=== PATIENT | male | born 1945 | race Caucasian/White ===

== ENCOUNTER 2021-04-14 16:53 | Inpatient (IN) | payer MEDICARE ==
[~2021-04-14] VITALS: Ht 188 cm; Wt 68.0 kg
[2021-04-14] MEDS ORDERED: TRAM50TA2 PO (17:33)
[2021-04-14] MEDS ORDERED: ACET-2154 PO (17:33)
[2021-04-14] MEDS ORDERED: CLON0.5T4 PO ×2 (17:33→17:34)
[2021-04-14] MEDS ORDERED: CARB-35 PO (17:33)
[2021-04-14] MEDS ORDERED: AZEL137S7 BNOSTRILS (17:33)
[2021-04-14] MEDS ORDERED: POLY17PO4 PO (17:33)
[2021-04-14] MEDS ORDERED: UMEC1BLS IH (17:33)
[2021-04-14] MEDS ORDERED: MONT10TA33 PO (17:33)
[2021-04-14] MEDS ORDERED: BUSP10TA3 PO (17:33)
[2021-04-14] MEDS ORDERED: CHLO473M5 PO (17:33)
[2021-04-14] MEDS ORDERED: ATOR40TA PO (17:33)
[2021-04-14] MEDS ORDERED: PANT40TA49 PO (17:33)
[2021-04-14] MEDS ORDERED: AMLO-212 PO (17:33)
[2021-04-14] MEDS ORDERED: FLUV50TA3 PO (17:33)
[2021-04-14] MEDS ORDERED: MULT-1169 PO (17:33)
[2021-04-14] MEDS ORDERED: BUPR-319 PO (17:33)
[2021-04-14] MEDS ORDERED: NA P133E RC (17:33)
[2021-04-14] MEDS ORDERED: LOSA100T31 PO (17:33)
[2021-04-14] MEDS ORDERED: TAMS-3 PO (17:33)
[2021-04-14] MEDS ORDERED: LEVO137T2 PO (17:33)
[2021-04-14] MEDS ORDERED: TRAZ-182 PO (17:33)
[2021-04-14] MEDS ORDERED: DOCU100C36 PO (17:34)
[2021-04-14 18:04] LABS: HEMATOCRIT 32.4 % (36.7-47.1); MEAN CORPUSCULAR HEMOGLOBIN 29.9 uug (23.8-33.4); MEAN CORPUSCULAR VOLUME 87.8 fL (73.0-96.2); PLATELET COUNT (AUTO) 300 K/uL (152-348)
[2021-04-14] MEDS ORDERED: FLUT16SP BNOSTRILS (18:07)
[2021-04-14] MEDS ORDERED: APIX5TAB4 PO (18:07)
[2021-04-14] MEDS ORDERED: FINA5TAB3 PO (18:07)
[2021-04-14] MEDS ORDERED: CALC625T65 PO (18:07)
[2021-04-14] MEDS ORDERED: FLUV25TA9 PO (18:08)
[2021-04-14 18:10] LABS: CARBON DIOXIDE 30 mmol/L (21-32); CHLORIDE 92 mmol/L (98-107); CREATININE 1.4 mg/dL (0.6-1.3); GLUCOSE 105 mg/dL (74-106); POTASSIUM 4.2 mmol/L (3.5-5.1); UREA NITROGEN, BLOOD 25 mg/dL (7-18)
[2021-04-14] MEDS ORDERED: MAGN400O6 PO (18:15)
[2021-04-14] MEDS ORDERED: BISA10SU61 RC (18:15)
[2021-04-14] MEDS ORDERED: VOLTAREN GEL TP (18:15)
[2021-04-14 18:16] LABS: ETHANOL < 3 MG/DL (0-0)
[2021-04-14 18:18] LABS: ALANINE AMINOTRANSFERASE 29 U/L (16-63); ALKALINE PHOSPHATASE 92 U/L (50-136); ASPARTATE AMINOTRANSFERASE 16 U/L (15-37); BILIRUBIN,DIRECT 0.2 mg/dL (0.0-0.2); BILIRUBIN,TOTAL 0.6 mg/dL (0.2-1.0); TOTAL PROTEIN, SERUM 7.4 g/dL (6.4-8.2)
[2021-04-14 18:21] LABS: ACETAMINOPHEN < 2.0 ug/mL (10-30)
[2021-04-14 18:23] LABS: THYROID STIMULATING HORMONE 0.291 mIU/mL (0.358-3.740)
[2021-04-14 18:32] LABS: *BILIRUBIN,URIN NEGATIVE (NEGATIVE); *BLOOD, URINE 2+ (NEGATIVE); *COLOR,URINE YELLOW (YELLOW); *KETONES,URINE NEGATIVE (NEGATIVE); LEUKOCYTE ESTERASE ,URINE NEGATIVE (NEGATIVE); NITRITE, URINE NEGATIVE (NEGATIVE); UGLUCOSE NEGATIVE (NEGATIVE)
[2021-04-14 18:35] LABS: *CLARITY,URINE SLIGHTLY HAZY (CLEAR); RBC,URINE 20-50 /HPF (0-3)
[2021-04-14 18:36] LABS: BACTERIA,URINE FEW /HPF (NONE SEEN); SQUAMOUS EPITHELIAL CELL,UR FEW /HPF (NONE SEEN)
[2021-04-14 18:40] LABS: *AMPHETAMINE, URINE NEGATIVE (NEGATIVE); *CANNABINOID, URINE NEGATIVE (NEGATIVE); *COCCAINE, URINE NEGATIVE (NEGATIVE); *OPIATE, URINE NEGATIVE (NEGATIVE); *PHENCYCLIDINE SCREEN,URINE NEGATIVE (NEGATIVE)
[2021-04-14] MEDS ORDERED: BISACODYL 10 MG SUPP.RECT RC PRN (21:00)
[2021-04-14] MEDS ORDERED: TRAMADOL HCL 50 MG TABLET PO PRN (21:00)
[2021-04-14] MEDS ORDERED: FLEET ENEMA 133 ML BOTTLE RC PRN (21:00)
[2021-04-14] MEDS ORDERED: LEVOTHYROXINE SODIUM 100 MCG TABLET PO ONE (21:00)
[2021-04-14] MEDS: TAMSULOSIN HCL 0.4 MG CAP.SR.24H PO SCH (22:14)
[2021-04-14] MEDS: TRAZODONE 50 MG TABLET PO SCH (22:14)
[2021-04-14] MEDS: ATORVASTATIN 40 MG TABLET PO SCH (22:14)
[2021-04-14] MEDS: AMLODIPINE 5 MG TABLET PO SCH (22:15)
[2021-04-14] MEDS: CLONAZEPAM 0.5 MG TABLET PO SCH (22:15)
[2021-04-14] MEDS ORDERED: FLUVOXAMINE MALEATE 50 MG TABLET ONE (23:12)
[2021-04-14] MEDS ORDERED: FLUVOXAMINE MALEATE 25 MG TABLET ONE (23:13)
[2021-04-14] MEDS: FLUVOXAMINE MALEATE 50 MG TABLET PO SCH (23:13)
[2021-04-15] VITALS: BP 147/66
[2021-04-15 04:00] VITALS: BP 133/70
[2021-04-15] MEDS: PANTOPRAZOLE SODIUM 40 MG TABLET.DR PO SCH (06:34)
[2021-04-15] MEDS: DOCUSATE SODIUM 100 MG CAPSULE PO SCH ×2 (08:08→16:19)
[2021-04-15] MEDS: busPIRone 10 MG TABLET PO SCH ×2 (08:08→16:18)
[2021-04-15] MEDS: MULTIVITAMINS,THERAPEUTIC TABLET PO SCH (08:08)
[2021-04-15] MEDS: CLONAZEPAM 0.5 MG TABLET PO SCH ×4 (08:09→20:49)
[2021-04-15] MEDS: MONTELUKAST SODIUM 10 MG TABLET PO SCH (08:09)
[2021-04-15] MEDS: FINASTERIDE 5 MG TABLET PO SCH (08:09)
[2021-04-15] MEDS: CARBIDOPA/LEVODOPA 25-100MG TABLET PO SCH ×3 (08:09→16:19)
[2021-04-15] MEDS: MIRALAX 17 GM POWD.PACK PO SCH (08:09)
[2021-04-15] MEDS: APIXABAN 5 MG TABLET PO SCH ×2 (08:10→20:54)
[2021-04-15] MEDS ORDERED: CARBIDOPA/LEVODOPA 25-100MG TAB.RAPDIS PO SCH (09:00)
[2021-04-15] MEDS ORDERED: REMEDY ESSENTIAL ZINC PASTE 113 GM TOP PRN (11:00)
[2021-04-15 11:36] VITALS: BP 114/59
[2021-04-15 12:42] LABS: *BILIRUBIN,URIN NEGATIVE (NEGATIVE); *BLOOD, URINE 2+ (NEGATIVE); *CLARITY,URINE CLEAR (CLEAR); *COLOR,URINE YELLOW (YELLOW); *KETONES,URINE 1+ (NEGATIVE); LEUKOCYTE ESTERASE ,URINE NEGATIVE (NEGATIVE); NITRITE, URINE NEGATIVE (NEGATIVE); PH,URINE 6.5 (5.0-8.0); UGLUCOSE NEGATIVE (NEGATIVE)
[2021-04-15 12:55] LABS: BACTERIA,URINE FEW /HPF (NONE SEEN); WBC,URINE 0-3 /HPF (0-3)
[2021-04-15 12:56] LABS: SQUAMOUS EPITHELIAL CELL,UR FEW /HPF (NONE SEEN)
[2021-04-15 12:57] LABS: RBC,URINE 20-50 /HPF (0-3)
[2021-04-15 13:03] LABS: *CREATININE,URINE 119.9 mg/dL (30-125); *URINE TOTAL PROTEIN RANDOM 40.7 mg/dL (<150/24HR)
[2021-04-15 15:59] VITALS: BP 127/50
[2021-04-15] MEDS: IV NS 1000 ML 1,000 ML IV PRN (19:17)
[2021-04-15 20:00] VITALS: BP 124/77
[2021-04-15] MEDS: ATORVASTATIN 40 MG TABLET PO SCH (20:49)
[2021-04-15] MEDS: TRAZODONE 50 MG TABLET PO SCH (20:49)
[2021-04-15] MEDS: TAMSULOSIN HCL 0.4 MG CAP.SR.24H PO SCH (20:49)
[2021-04-15] MEDS: REMEDY ESSENTIAL ZINC PASTE 113 GM TOP SCH (20:50)
[2021-04-15] MEDS: AMLODIPINE 5 MG TABLET PO SCH (20:53)
[2021-04-15] MEDS: FLUVOXAMINE MALEATE 50 MG TABLET PO SCH (20:55)
[2021-04-16] VITALS: BP 120/64
[2021-04-16 04:00] VITALS: BP 115/64
[2021-04-16] MEDS: PANTOPRAZOLE SODIUM 40 MG TABLET.DR PO SCH (06:05)
[2021-04-16 06:15] LABS: HEMATOCRIT 31.5 % (36.7-47.1); MEAN CORPUSCULAR HEMOGLOBIN 29.6 uug (23.8-33.4); MEAN CORPUSCULAR VOLUME 87.7 fL (73.0-96.2); PLATELET COUNT (AUTO) 341 K/uL (152-348)
[2021-04-16 06:47] LABS: IRON, SERUM 14 ug/dL (50-175)
[2021-04-16 07:01] LABS: ALANINE AMINOTRANSFERASE 20 U/L (16-63); ALKALINE PHOSPHATASE 79 U/L (50-136); ASPARTATE AMINOTRANSFERASE 19 U/L (15-37); BILIRUBIN,TOTAL 0.4 mg/dL (0.2-1.0); CARBON DIOXIDE 29 mmol/L (21-32); CHLORIDE 96 mmol/L (98-107); CREATININE 1.5 mg/dL (0.6-1.3); FERRITIN 544 ng/mL (26-388); GLUCOSE 87 mg/dL (74-106); MAGNESIUM 2.3 mg/dL (1.8-2.4); POTASSIUM 4.2 mmol/L (3.5-5.1); TOTAL PROTEIN, SERUM 6.3 g/dL (6.4-8.2); UREA NITROGEN, BLOOD 21 mg/dL (7-18); URIC ACID 3.6 mg/dL (3.5-7.2)
[2021-04-16 08:10] LABS: CREATINE KINASE, TOTAL 43 U/L (39-308)
[2021-04-16] MEDS: FINASTERIDE 5 MG TABLET PO SCH (08:39)
[2021-04-16] MEDS: DOCUSATE SODIUM 100 MG CAPSULE PO SCH ×2 (08:39→16:10)
[2021-04-16] MEDS: MONTELUKAST SODIUM 10 MG TABLET PO SCH (08:39)
[2021-04-16] MEDS: busPIRone 10 MG TABLET PO SCH ×2 (08:39→16:10)
[2021-04-16] MEDS: MULTIVITAMINS,THERAPEUTIC TABLET PO SCH (08:39)
[2021-04-16] MEDS: CARBIDOPA/LEVODOPA 25-100MG TABLET PO SCH ×3 (08:39→16:11)
[2021-04-16] MEDS: MIRALAX 17 GM POWD.PACK PO SCH (08:39)
[2021-04-16] MEDS: CLONAZEPAM 0.5 MG TABLET PO SCH ×4 (08:40→20:20)
[2021-04-16] MEDS: REMEDY ESSENTIAL ZINC PASTE 113 GM TOP SCH ×2 (08:40→20:22)
[2021-04-16 10:07] VITALS: BP_SYST 105; BP_SYST 114; BP_SYST 87; BP_DIAS 48; BP_DIAS 52; BP_DIAS 54
[2021-04-16] MEDS: LEVOTHYROXINE SODIUM 25 MCG TABLET PO SCH (10:31)
[2021-04-16 11:55] VITALS: BP 103/48
[2021-04-16 15:46] VITALS: BP 117/58
[2021-04-16] MEDS: ENSURE ENLIVE (VAN) 240 ML LIQUID PO SCH (17:43)
[2021-04-16] MEDS: IV NS 1000 ML 1,000 ML IV PRN (18:07)
[2021-04-16] MEDS: ATORVASTATIN 40 MG TABLET PO SCH (20:20)
[2021-04-16] MEDS: TAMSULOSIN HCL 0.4 MG CAP.SR.24H PO SCH (20:20)
[2021-04-16] MEDS: FLUVOXAMINE MALEATE 50 MG TABLET PO SCH (20:20)
[2021-04-16] MEDS: TRAZODONE 50 MG TABLET PO SCH (20:20)
[2021-04-16] MEDS: AMLODIPINE 5 MG TABLET PO SCH (20:21)
[2021-04-17] MEDS: PANTOPRAZOLE SODIUM 40 MG TABLET.DR PO SCH (06:09)
[2021-04-17] MEDS: LEVOTHYROXINE SODIUM 25 MCG TABLET PO SCH (06:09)
[2021-04-17 06:31] LABS: HEMATOCRIT 31.2 % (36.7-47.1); MEAN CORPUSCULAR HEMOGLOBIN 30.2 uug (23.8-33.4); PLATELET COUNT (AUTO) 343 K/uL (152-348)
[2021-04-17 06:52] LABS: CARBON DIOXIDE 29 mmol/L (21-32); CHLORIDE 98 mmol/L (98-107); CREATININE 1.4 mg/dL (0.6-1.3); GLUCOSE 93 mg/dL (74-106); POTASSIUM 4.4 mmol/L (3.5-5.1); UREA NITROGEN, BLOOD 22 mg/dL (7-18)
[2021-04-17] MEDS: MONTELUKAST SODIUM 10 MG TABLET PO SCH (08:01)
[2021-04-17] MEDS: FINASTERIDE 5 MG TABLET PO SCH (08:01)
[2021-04-17] MEDS: busPIRone 10 MG TABLET PO SCH ×2 (08:01→16:57)
[2021-04-17] MEDS: MULTIVITAMINS,THERAPEUTIC TABLET PO SCH (08:01)
[2021-04-17] MEDS: CLONAZEPAM 0.5 MG TABLET PO SCH ×3 (08:01→16:57)
[2021-04-17] MEDS: CARBIDOPA/LEVODOPA 25-100MG TABLET PO SCH ×3 (08:01→16:56)
[2021-04-17] MEDS: DOCUSATE SODIUM 100 MG CAPSULE PO SCH ×2 (08:01→16:58)
[2021-04-17] MEDS: REMEDY ESSENTIAL ZINC PASTE 113 GM TOP SCH (08:02)
[2021-04-17] MEDS: MIRALAX 17 GM POWD.PACK PO SCH (08:02)
[2021-04-17] MEDS: ENSURE ENLIVE (VAN) 240 ML LIQUID PO SCH (08:04)
[2021-04-17 08:06] LABS: A/G RATIO 0.9 (0.7-1.7); ALBUMIN 2.6 g/dL (2.9-4.4); ALPHA-1-GLOBULIN 0.4 g/dL (0.0-0.4); ALPHA-2-GLOBULIN 0.9 g/dL (0.4-1.0); BETA GLOBULIN 0.8 g/dL (0.7-1.3); GAMMA GLOBULIN 0.9 g/dL (0.4-1.8); M-SPIKE Not Observed g/dL (Not Observed)
[2021-04-17] MEDS ORDERED: FLUDROCORTISONE ACETATE 0.1 MG TABLET PO SCH (09:00)
[2021-04-17] MEDS ORDERED: LEVO25TA2 PO (10:32)
[2021-04-17] MEDS ORDERED: FLUD0.1T PO ×2 (10:32→20:26)
[2021-04-17 11:38] VITALS: BP 102/53
[2021-04-17 16:00] VITALS: BP 129/71
[2021-04-17] MEDS: IV NS 1000 ML 1,000 ML IV PRN (17:05)
[2021-04-17] MEDS ORDERED: PANT40TA2 PO (20:26)
[2021-04-17] MEDS ORDERED: CARB1TAB21 PO (20:26)
[2021-04-17] MEDS ORDERED: DOCU100C36 PO (20:26)
[2021-04-17] MEDS ORDERED: BUSP10TA3 PO (20:26)
[2021-04-17] MEDS ORDERED: ATOR40TA PO (20:26)
[2021-04-17] MEDS ORDERED: BISA10SU61 RC (20:26)
[2021-04-17] MEDS ORDERED: FINA5TAB3 PO (20:26)
[2021-04-17] MEDS ORDERED: AMLO-212 PO (20:26)
[2021-04-17] MEDS ORDERED: POLY119P2 PO (20:26)
[2021-04-17] MEDS ORDERED: MONT10TA22 PO (20:26)
[2021-04-17] MEDS ORDERED: CLON0.5T4 PO (20:26)
[2021-04-17] MEDS ORDERED: MULT-594 PO (20:26)
[2021-04-17] MEDS ORDERED: FLUV50TA10 PO (20:26)
[2021-04-17] MEDS ORDERED: TAMS-3 PO (20:26)
[2021-04-17] MEDS ORDERED: TRAM50TA2 PO (20:26)
[2021-04-17] MEDS ORDERED: CLON1TAB12 PO (20:26)
== END 2021-04-17 18:27 | DRG 56 ==
LOC: ER 16:55 → TELE3 21:23 → MEDSURG3 04-17 09:50
PROVIDERS: ADMIT Internal Medicine; ATTEND Nurse Practitioner Acute Care
DX: G20 Parkinson's disease (principal); N17.0 Acute kidney failure with tubular necrosis; E87.1 Hypo-osmolality and hyponatremia; E44.0 Moderate protein-calorie malnutrition; Z68.1 Body mass index [BMI] 19.9 or less, adult; R64 Cachexia; N13.30 Unspecified hydronephrosis; I67.89 Other cerebrovascular disease; R29.6 Repeated falls; Z79.01 Long term (current) use of anticoagulants; Z86.718 Personal history of other venous thrombosis and embolism; K21.9 Gastro-esophageal reflux disease without esophagitis; E89.0 Postprocedural hypothyroidism; Z79.890 Hormone replacement therapy; F41.9 Anxiety disorder, unspecified; Z90.49 Acquired absence of other specified parts of digestive tract; N40.0 Benign prostatic hyperplasia without lower urinary tract symptoms; E86.1 Hypovolemia; F02.80 Dementia in other diseases classified elsewhere, unspecified severity, without behavioral disturbance, psychotic disturbance, mood disturbance, and anxiety; I12.9 Hypertensive chronic kidney disease with stage 1 through stage 4 chronic kidney disease, or unspecified chronic kidney disease; N18.9 Chronic kidney disease, unspecified; F90.9 Attention-deficit hyperactivity disorder, unspecified type; E78.5 Hyperlipidemia, unspecified; D64.9 Anemia, unspecified; Z79.899 Other long term (current) drug therapy; M77.52 Other enthesopathy of left foot and ankle; M77.51 Other enthesopathy of right foot and ankle; F32.A Depression, unspecified; Z98.890 Other specified postprocedural states; M25.551 Pain in right hip; Z20.822 Contact with and (suspected) exposure to COVID-19
CPT/HCPCS: 36415; 70450; 70551; 71045; 72125; 73502; 76770; 82533; 83550; 83605; 83735; 83935; 83970; 84100; 84155; 84156; 84165; 84300; 84443; 84484; 84550; 85025; 85730; 87040; 87086; 93005; 97161; A4663; A6209; G0378; G0480; J7030; J8499

== ENCOUNTER 2021-04-17 15:55 | Inpatient (IN) | payer MEDICARE ==
[~2021-04-17] VITALS: Ht 177.8 cm; Wt 64.1 kg
[~2021-04-17 15:55] MED LIST: ACET-2154 PO; AMLO-212 PO; APIX5TAB4 PO; ATOR40TA PO; AZEL137S7 BNOSTRILS; BISA10SU61 RC; BUPR-319 PO; BUSP10TA3 PO; CALC625T65 PO; CARB-35 PO; CHLO473M5 PO; CLON0.5T4 PO; DOCU100C36 PO; FINA5TAB3 PO; FLUD0.1T PO; FLUT16SP BNOSTRILS; FLUV50TA3 PO; LEVO137T2 PO; LEVO25TA2 PO; LOSA100T31 PO; MAGN400O6 PO; MONT10TA33 PO; MULT-1169 PO; NA P133E RC; PANT40TA49 PO; POLY17PO4 PO; TAMS-3 PO; TRAM50TA2 PO; TRAZ-182 PO; UMEC1BLS IH; VOLTAREN GEL TP
[2021-04-17] MEDS ORDERED: REMEDY ESSENTIAL ZINC PASTE 113 GM TOP PRN (20:00)
[2021-04-17 20:25] VITALS: BP 126/60
[2021-04-17] MEDS ORDERED: AMLO-212 PO (20:26)
[2021-04-17] MEDS ORDERED: ATOR40TA PO (20:26)
[2021-04-17] MEDS ORDERED: MULT-594 PO (20:26)
[2021-04-17] MEDS ORDERED: CARB1TAB21 PO (20:26)
[2021-04-17] MEDS ORDERED: FINA5TAB3 PO (20:26)
[2021-04-17] MEDS ORDERED: POLY119P2 PO (20:26)
[2021-04-17] MEDS ORDERED: TRAM50TA2 PO (20:26)
[2021-04-17] MEDS ORDERED: MONT10TA22 PO (20:26)
[2021-04-17] MEDS ORDERED: BISA10SU61 RC (20:26)
[2021-04-17] MEDS ORDERED: BUSP10TA3 PO (20:26)
[2021-04-17] MEDS ORDERED: CLON1TAB12 PO (20:26)
[2021-04-17] MEDS ORDERED: TAMS-3 PO (20:26)
[2021-04-17] MEDS ORDERED: CLON0.5T4 PO (20:26)
[2021-04-17] MEDS ORDERED: DOCU100C36 PO (20:26)
[2021-04-17] MEDS ORDERED: FLUV50TA10 PO (20:26)
[2021-04-17] MEDS ORDERED: PANT40TA2 PO (20:26)
[2021-04-17] MEDS ORDERED: FLUD0.1T PO (20:26)
[2021-04-17] MEDS ORDERED: TRAMADOL HCL 50 MG TABLET PO PRN (21:00)
[2021-04-17] MEDS: AMLODIPINE 5 MG TABLET PO SCH ×2 (21:37→21:39)
[2021-04-17] MEDS: CLONAZEPAM 0.5 MG TABLET PO SCH (21:40)
[2021-04-17] MEDS: ATORVASTATIN 40 MG TABLET PO SCH (21:43)
[2021-04-17] MEDS: TAMSULOSIN HCL 0.4 MG CAP.SR.24H PO SCH (21:43)
[2021-04-17] MEDS: FLUVOXAMINE MALEATE 50 MG TABLET PO SCH (21:44)
--- NOTE | 2021-04-18 04:07 | NUR ---
Received a 76 yr old male from Med-surg to rehab with an admitting diagnosis of generalized weakness, and deconditioning. Hx of Parkinsons, HTN. AAOx3-4 . Forgetful at times. Able to follow commands. VSS. No acute distress noted. Right forearm heplock flushed and patent. Denies any pain nor any discomfort. Fall precautions maintained. Siderails up for safety. All due meds given as scheduled. Meds reconciliation done by Dr Mitchell. Skin intact. Incontinent of bowel and bladder. No BM noted this shift. Will monitor patient.
[2021-04-18 04:44] VITALS: BP 134/60
[2021-04-18] MEDS: PANTOPRAZOLE SODIUM 40 MG TABLET.DR PO SCH (06:08)
[2021-04-18 07:29] VITALS: BP 132/60
--- NOTE | 2021-04-18 08:30 | NUR ---
patient is coughing frequently with breakfast and medications. will keep npo for swallow eval and will inform doctor.
[2021-04-18] MEDS: busPIRone 10 MG TABLET PO SCH ×2 (08:57→16:46)
[2021-04-18] MEDS: MULTIVITAMINS,THERAPEUTIC TABLET PO SCH (08:57)
[2021-04-18] MEDS: CLONAZEPAM 0.5 MG TABLET PO SCH ×4 (08:58→20:45)
[2021-04-18] MEDS: CARBIDOPA/LEVODOPA 25-100MG TABLET PO SCH ×3 (08:58→16:45)
[2021-04-18] MEDS: FLUDROCORTISONE ACETATE 0.1 MG TABLET PO SCH (08:58)
[2021-04-18] MEDS ORDERED: POLYETHYLENE GLYCOL 3350 238 GM POWDER PO SCH (09:00)
[2021-04-18] MEDS: FINASTERIDE 5 MG TABLET PO SCH (09:00)
[2021-04-18] MEDS: MIRALAX 17 GM POWD.PACK PO SCH (09:00)
[2021-04-18] MEDS: DOCUSATE SODIUM 100 MG CAPSULE PO SCH ×2 (09:00→16:46)
[2021-04-18] MEDS ORDERED: FLEET ENEMA 133 ML BOTTLE RC PRN (11:45)
[2021-04-18] MEDS ORDERED: BISACODYL 10 MG SUPP.RECT RC PRN (11:45)
[2021-04-18 12:00] VITALS: BP 115/60
[2021-04-18] MEDS ORDERED: MAGNESIUM HYDROXIDE 30 ML LIQUID UDC PO PRN (12:45)
[2021-04-18] MEDS ORDERED: buPROPion XL 150 MG TAB.SR.24H PO SCH (12:45)
[2021-04-18 16:00] VITALS: BP 115/57
[2021-04-18] MEDS: MONTELUKAST SODIUM 10 MG TABLET PO SCH (16:45)
[2021-04-18] MEDS: CHLORHEXIDINE GLUCONATE 15 ML MOUTHWASH MM SCH (16:49)
--- NOTE | 2021-04-18 19:20 | NUR ---
received patient awake , able to follow command on room air , incotinent of bowel bowels and urine , 18 ga iv on rfrearm intact
[2021-04-18 20:00] VITALS: BP 119/59
[2021-04-18] MEDS: TAMSULOSIN HCL 0.4 MG CAP.SR.24H PO SCH (20:44)
[2021-04-18] MEDS: ATORVASTATIN 40 MG TABLET PO SCH (20:45)
[2021-04-18] MEDS: FLUVOXAMINE MALEATE 50 MG TABLET PO SCH (20:47)
[2021-04-18] MEDS: buPROPion 75 MG TABLET PO SCH (21:45)
[2021-04-19 04:00] VITALS: BP 128/64
[2021-04-19] MEDS: LEVOTHYROXINE SODIUM 25 MCG TABLET PO SCH (05:29)
[2021-04-19] MEDS: PANTOPRAZOLE SODIUM 40 MG TABLET.DR PO SCH (05:30)
[2021-04-19] MEDS: CLONAZEPAM 0.5 MG TABLET PO SCH ×4 (08:56→21:07)
[2021-04-19] MEDS: DOCUSATE SODIUM 100 MG CAPSULE PO SCH (08:56)
[2021-04-19] MEDS: FINASTERIDE 5 MG TABLET PO SCH (08:59)
[2021-04-19] MEDS: CHLORHEXIDINE GLUCONATE 15 ML MOUTHWASH MM SCH ×2 (08:59→16:51)
[2021-04-19] MEDS: busPIRone 10 MG TABLET PO SCH ×2 (08:59→16:48)
[2021-04-19] MEDS: CARBIDOPA/LEVODOPA 25-100MG TABLET PO SCH ×3 (08:59→16:48)
[2021-04-19] MEDS: FLUDROCORTISONE ACETATE 0.1 MG TABLET PO SCH (08:59)
[2021-04-19] MEDS: MULTIVITAMINS,THERAPEUTIC TABLET PO SCH (08:59)
[2021-04-19] MEDS: MIRALAX 17 GM POWD.PACK PO SCH (09:00)
[2021-04-19] MEDS: buPROPion 75 MG TABLET PO SCH ×2 (09:11→21:10)
[2021-04-19 11:52] VITALS: BP 107/53
[2021-04-19 16:00] VITALS: BP 121/58
[2021-04-19] MEDS: DOCUSATE SODIUM 100 MG/10 ML LIQUID UDC PO SCH (16:52)
[2021-04-19] MEDS: MONTELUKAST SODIUM 10 MG TABLET PO SCH (17:09)
--- NOTE | 2021-04-19 19:00 | NUR ---
Received patient on bed, alert, no shortness of breath noted, able to understand simple directions, able to make his needs known. Call light placed within reach.
[2021-04-19 20:00] VITALS: BP 124/60
[2021-04-19] MEDS: ATORVASTATIN 40 MG TABLET PO SCH (21:04)
[2021-04-19] MEDS: AMLODIPINE 5 MG TABLET PO SCH (21:05)
[2021-04-19] MEDS: TAMSULOSIN HCL 0.4 MG CAP.SR.24H PO SCH (21:05)
[2021-04-19] MEDS: FLUVOXAMINE MALEATE 50 MG TABLET PO SCH (21:08)
[2021-04-20 04:00] VITALS: BP 122/60
--- NOTE | 2021-04-20 06:18 | NUR ---
Patient slept well at night. Mepilex applied at sacral area and both heels for protection. Due meds given. Tolerated well, pills crushed and given with apple sauce. Patient in fair condition.
[2021-04-20] MEDS: PANTOPRAZOLE SODIUM 40 MG TABLET.DR PO SCH (06:29)
[2021-04-20] MEDS: LEVOTHYROXINE SODIUM 25 MCG TABLET PO SCH (06:29)
[2021-04-20 06:48] LABS: HEMATOCRIT 31.3 % (36.7-47.1); MEAN CORPUSCULAR HEMOGLOBIN 29.7 uug (23.8-33.4); MEAN CORPUSCULAR VOLUME 86.2 fL (73.0-96.2); PLATELET COUNT (AUTO) 402 K/uL (152-348)
[2021-04-20 07:51] LABS: BILIRUBIN,TOTAL 0.4 mg/dL (0.2-1.0); CREATININE 1.3 mg/dL (0.6-1.3); MAGNESIUM 2.3 mg/dL (1.8-2.4); PHOSPHOROUS 3.3 mg/dL (2.5-4.9); POTASSIUM 3.9 mmol/L (3.5-5.1); TOTAL PROTEIN, SERUM 6.3 g/dL (6.4-8.2)
[2021-04-20 07:52] VITALS: BP 126/65
[2021-04-20] MEDS: busPIRone 10 MG TABLET PO SCH ×2 (08:36→17:45)
[2021-04-20] MEDS: FINASTERIDE 5 MG TABLET PO SCH (08:36)
[2021-04-20] MEDS: FLUDROCORTISONE ACETATE 0.1 MG TABLET PO SCH (08:36)
[2021-04-20] MEDS: CARBIDOPA/LEVODOPA 25-100MG TABLET PO SCH ×3 (08:36→17:45)
[2021-04-20] MEDS: MULTIVITAMINS,THERAPEUTIC TABLET PO SCH (08:36)
[2021-04-20] MEDS: CLONAZEPAM 0.5 MG TABLET PO SCH ×4 (08:37→21:22)
[2021-04-20] MEDS: MIRALAX 17 GM POWD.PACK PO SCH (08:39)
[2021-04-20] MEDS: DOCUSATE SODIUM 100 MG/10 ML LIQUID UDC PO SCH ×2 (08:39→17:46)
[2021-04-20] MEDS: CHLORHEXIDINE GLUCONATE 15 ML MOUTHWASH MM SCH ×2 (08:40→17:48)
[2021-04-20] MEDS: buPROPion 75 MG TABLET PO SCH ×2 (08:46→21:25)
--- NOTE | 2021-04-20 09:20 | NUR ---
INDIVIDUALIZED PLAN OF CARE
[2021-04-20 15:24] VITALS: BP 105/58
[2021-04-20] MEDS: MONTELUKAST SODIUM 10 MG TABLET PO SCH (17:46)
[2021-04-20] MEDS: ENSURE ENLIVE (VAN) 240 ML LIQUID PO SCH (17:50)
--- NOTE | 2021-04-20 19:00 | NUR ---
Received patient on the wheelchair, alert, not in respiratory distress, no complaint of pain. Offered fluids to drink, tolerated well with thickener.
[2021-04-20 20:42] VITALS: BP 110/56
[2021-04-20] MEDS: TAMSULOSIN HCL 0.4 MG CAP.SR.24H PO SCH (21:21)
[2021-04-20] MEDS: ATORVASTATIN 40 MG TABLET PO SCH (21:21)
[2021-04-20] MEDS: AMLODIPINE 5 MG TABLET PO SCH (21:24)
[2021-04-20] MEDS: FLUVOXAMINE MALEATE 50 MG TABLET PO SCH (21:27)
[2021-04-21 04:26] VITALS: BP 120/55
--- NOTE | 2021-04-21 04:30 | NUR ---
Patient slept well at night, no complaint of any discomfort or pain. Repositioned for comfort. Picture taken at right hip with bruises. Patient in fair condition. For continuity of care.
[2021-04-21] MEDS: PANTOPRAZOLE SODIUM 40 MG TABLET.DR PO SCH (06:07)
[2021-04-21] MEDS: LEVOTHYROXINE SODIUM 25 MCG TABLET PO SCH (06:07)
[2021-04-21] MEDS: CLONAZEPAM 0.5 MG TABLET PO SCH ×4 (08:05→20:31)
[2021-04-21] MEDS: FINASTERIDE 5 MG TABLET PO SCH (08:05)
[2021-04-21] MEDS: MULTIVITAMINS,THERAPEUTIC TABLET PO SCH (08:06)
[2021-04-21] MEDS: FLUDROCORTISONE ACETATE 0.1 MG TABLET PO SCH (08:06)
[2021-04-21] MEDS: buPROPion 75 MG TABLET PO SCH ×2 (08:06→20:31)
[2021-04-21] MEDS: CARBIDOPA/LEVODOPA 25-100MG TABLET PO SCH ×3 (08:07→17:54)
[2021-04-21] MEDS: CHLORHEXIDINE GLUCONATE 15 ML MOUTHWASH MM SCH ×2 (08:07→17:55)
[2021-04-21] MEDS: busPIRone 10 MG TABLET PO SCH ×2 (08:07→17:54)
[2021-04-21] MEDS: DOCUSATE SODIUM 100 MG/10 ML LIQUID UDC PO SCH ×2 (08:08→17:54)
[2021-04-21] MEDS: MIRALAX 17 GM POWD.PACK PO SCH (08:08)
[2021-04-21] MEDS: ENSURE ENLIVE (VAN) 240 ML LIQUID PO SCH ×3 (08:08→17:55)
[2021-04-21 12:06] VITALS: BP 126/62
[2021-04-21 15:54] VITALS: BP 107/57
[2021-04-21] MEDS: MONTELUKAST SODIUM 10 MG TABLET PO SCH (17:54)
[2021-04-21 20:25] VITALS: BP 105/57
[2021-04-21] MEDS: TAMSULOSIN HCL 0.4 MG CAP.SR.24H PO SCH (20:29)
[2021-04-21] MEDS: ATORVASTATIN 40 MG TABLET PO SCH (20:31)
[2021-04-21] MEDS: FLUVOXAMINE MALEATE 50 MG TABLET PO SCH (20:32)
[2021-04-21] MEDS: AMLODIPINE 5 MG TABLET PO SCH (20:34)
[2021-04-22 05:47] VITALS: BP 129/57
[2021-04-22] MEDS: PANTOPRAZOLE SODIUM 40 MG TABLET.DR PO SCH (06:13)
[2021-04-22] MEDS: LEVOTHYROXINE SODIUM 25 MCG TABLET PO SCH (06:13)
--- NOTE | 2021-04-22 06:48 | NUR ---
Shift End Report: VS stable. Slept good. No complaint presented all night. No s/s of aspiration. Able to swallow crushed medications with apple sauce without any problem. Kept HOB elevated at all times. All needs attended and met. No significant event reported throughout the night.
[2021-04-22 08:00] VITALS: BP 120/65
[2021-04-22] MEDS: FINASTERIDE 5 MG TABLET PO SCH (08:12)
[2021-04-22] MEDS: MULTIVITAMINS,THERAPEUTIC TABLET PO SCH (08:12)
[2021-04-22] MEDS: CLONAZEPAM 0.5 MG TABLET PO SCH ×3 (08:12→20:08)
[2021-04-22] MEDS: busPIRone 10 MG TABLET PO SCH ×2 (08:12→16:41)
[2021-04-22] MEDS: ENSURE ENLIVE (VAN) 240 ML LIQUID PO SCH ×3 (08:13→16:42)
[2021-04-22] MEDS: DOCUSATE SODIUM 100 MG/10 ML LIQUID UDC PO SCH ×2 (08:13→16:41)
[2021-04-22] MEDS: CHLORHEXIDINE GLUCONATE 15 ML MOUTHWASH MM SCH ×2 (08:13→16:42)
[2021-04-22] MEDS: FLUDROCORTISONE ACETATE 0.1 MG TABLET PO SCH (08:13)
[2021-04-22] MEDS: MIRALAX 17 GM POWD.PACK PO SCH (08:13)
[2021-04-22] MEDS: CARBIDOPA/LEVODOPA 25-100MG TABLET PO SCH ×3 (08:14→16:41)
[2021-04-22] MEDS: buPROPion 75 MG TABLET PO SCH ×2 (08:15→20:08)
--- NOTE | 2021-04-22 12:33 | NUR ---
INTERDISCIPLINARY TEAM CONFERENCE
[2021-04-22 16:00] VITALS: BP 118/63
[2021-04-22] MEDS: MONTELUKAST SODIUM 10 MG TABLET PO SCH (17:13)
--- NOTE | 2021-04-22 19:30 | NUR ---
Received patient lying in bed. AAOx3. In no apparent distress. Denies any pain or SOB. Appears calm and comfortable. IV site on right FA intact and patent. Needs assessed and attended to. Safety measure initiated and call light within reach.
[2021-04-22] MEDS: TAMSULOSIN HCL 0.4 MG CAP.SR.24H PO SCH (20:08)
[2021-04-22] MEDS: ATORVASTATIN 40 MG TABLET PO SCH (20:08)
[2021-04-22] MEDS: AMLODIPINE 5 MG TABLET PO SCH (20:08)
[2021-04-22] MEDS: FLUVOXAMINE MALEATE 50 MG TABLET PO SCH (20:09)
[2021-04-22 20:10] VITALS: BP 123/61
[2021-04-23 04:46] VITALS: BP 112/63
--- NOTE | 2021-04-23 05:32 | NUR ---
Patient slept well through out the night. In no acute distress. IV site on right FA intact and patent. Needs attended to and met. Safety measure maintained and call light within reach.
[2021-04-23] MEDS: LEVOTHYROXINE SODIUM 25 MCG TABLET PO SCH (06:10)
[2021-04-23] MEDS: PANTOPRAZOLE SODIUM 40 MG TABLET.DR PO SCH (06:10)
[2021-04-23] MEDS: CHLORHEXIDINE GLUCONATE 15 ML MOUTHWASH MM SCH ×2 (08:19→16:13)
[2021-04-23] MEDS: busPIRone 10 MG TABLET PO SCH ×2 (08:20→17:20)
[2021-04-23] MEDS: CARBIDOPA/LEVODOPA 25-100MG TABLET PO SCH ×3 (08:20→17:19)
[2021-04-23] MEDS: FLUDROCORTISONE ACETATE 0.1 MG TABLET PO SCH (08:21)
[2021-04-23] MEDS: MULTIVITAMINS,THERAPEUTIC TABLET PO SCH (08:21)
[2021-04-23] MEDS: FINASTERIDE 5 MG TABLET PO SCH (08:21)
[2021-04-23] MEDS: CLONAZEPAM 0.5 MG TABLET PO SCH ×3 (08:22→20:10)
[2021-04-23] MEDS: MIRALAX 17 GM POWD.PACK PO SCH (08:22)
[2021-04-23] MEDS: ENSURE ENLIVE (VAN) 240 ML LIQUID PO SCH ×3 (08:22→17:21)
[2021-04-23] MEDS: DOCUSATE SODIUM 100 MG/10 ML LIQUID UDC PO SCH ×2 (08:22→17:17)
[2021-04-23] MEDS: buPROPion 75 MG TABLET PO SCH ×2 (08:31→20:10)
[2021-04-23 12:00] VITALS: BP 102/52
[2021-04-23 16:00] VITALS: BP 124/50
[2021-04-23] MEDS: MONTELUKAST SODIUM 10 MG TABLET PO SCH (17:20)
--- NOTE | 2021-04-23 19:22 | NUR ---
Report given to MAG Vásquez
[2021-04-23] MEDS: ATORVASTATIN 40 MG TABLET PO SCH (20:10)
[2021-04-23] MEDS: TAMSULOSIN HCL 0.4 MG CAP.SR.24H PO SCH (20:11)
[2021-04-23] MEDS: AMLODIPINE 5 MG TABLET PO SCH (20:11)
[2021-04-23] MEDS: FLUVOXAMINE MALEATE 50 MG TABLET PO SCH (20:12)
[2021-04-23 20:41] VITALS: BP 140/63
[2021-04-24 04:00] VITALS: BP 121/62
[2021-04-24] MEDS: PANTOPRAZOLE SODIUM 40 MG TABLET.DR PO SCH (06:04)
[2021-04-24] MEDS: LEVOTHYROXINE SODIUM 25 MCG TABLET PO SCH (06:04)
--- NOTE | 2021-04-24 06:26 | NUR ---
Received pt asleep on bed with no respiratory distress noted. He is alert and oriented x3-4, sometimes forgetful. Denies pain and discomfort. All due meds given on time and tolerated well. All needs attended. Call light placed within reach. Frequent visual checks done. Will endorse to next shift for continuity of care.
[2021-04-24 07:31] VITALS: BP 136/67
[2021-04-24] MEDS: busPIRone 10 MG TABLET PO SCH ×2 (08:04→16:23)
[2021-04-24] MEDS: buPROPion 75 MG TABLET PO SCH ×2 (08:04→20:05)
[2021-04-24] MEDS: CARBIDOPA/LEVODOPA 25-100MG TABLET PO SCH ×3 (08:04→16:23)
[2021-04-24] MEDS: CHLORHEXIDINE GLUCONATE 15 ML MOUTHWASH MM SCH ×2 (08:04→16:23)
[2021-04-24] MEDS: MIRALAX 17 GM POWD.PACK PO SCH (08:04)
[2021-04-24] MEDS: DOCUSATE SODIUM 100 MG/10 ML LIQUID UDC PO SCH ×2 (08:04→16:23)
[2021-04-24] MEDS: FLUDROCORTISONE ACETATE 0.1 MG TABLET PO SCH (08:04)
[2021-04-24] MEDS: MULTIVITAMINS,THERAPEUTIC TABLET PO SCH (08:04)
[2021-04-24] MEDS: FINASTERIDE 5 MG TABLET PO SCH (08:04)
[2021-04-24] MEDS: CLONAZEPAM 0.5 MG TABLET PO SCH ×3 (08:05→20:06)
[2021-04-24] MEDS: ENSURE ENLIVE (VAN) 240 ML LIQUID PO SCH ×3 (08:05→16:23)
[2021-04-24 16:12] VITALS: BP 122/64
[2021-04-24] MEDS: MONTELUKAST SODIUM 10 MG TABLET PO SCH (17:01)
--- NOTE | 2021-04-24 19:30 | NUR ---
Patient AAOx3. In no apparent distress. Denies any pain or SOB. IV site on right FA intact and patent. Needs assessed and attended to. Safety measure initiated and call light within reach.
[2021-04-24] MEDS: FLUVOXAMINE MALEATE 50 MG TABLET PO SCH (20:05)
[2021-04-24] MEDS: AMLODIPINE 5 MG TABLET PO SCH (20:05)
[2021-04-24] MEDS: TAMSULOSIN HCL 0.4 MG CAP.SR.24H PO SCH (20:06)
[2021-04-24] MEDS: ATORVASTATIN 40 MG TABLET PO SCH (20:06)
[2021-04-24 20:11] VITALS: BP 116/56
[2021-04-25 05:22] VITALS: BP 132/68
[2021-04-25] MEDS: LEVOTHYROXINE SODIUM 25 MCG TABLET PO SCH (06:05)
[2021-04-25] MEDS: PANTOPRAZOLE SODIUM 40 MG TABLET.DR PO SCH (06:05)
--- NOTE | 2021-04-25 06:09 | NUR ---
Pt slept well last night. In no acute distress. Denies any pain or SOB, IV site on right FA remains intact and patent. Needs attended to and met. Due meds given and taken. Safety measure maintained and call light within reached.
[2021-04-25 08:02] VITALS: BP 126/65
[2021-04-25] MEDS: buPROPion 75 MG TABLET PO SCH ×2 (08:09→20:37)
[2021-04-25] MEDS: DOCUSATE SODIUM 100 MG/10 ML LIQUID UDC PO SCH ×2 (08:09→16:49)
[2021-04-25] MEDS: FINASTERIDE 5 MG TABLET PO SCH (08:10)
[2021-04-25] MEDS: CARBIDOPA/LEVODOPA 25-100MG TABLET PO SCH ×3 (08:10→16:49)
[2021-04-25] MEDS: MULTIVITAMINS,THERAPEUTIC TABLET PO SCH (08:11)
[2021-04-25] MEDS: CLONAZEPAM 0.5 MG TABLET PO SCH ×3 (08:11→20:35)
[2021-04-25] MEDS: MIRALAX 17 GM POWD.PACK PO SCH (08:11)
[2021-04-25] MEDS: FLUDROCORTISONE ACETATE 0.1 MG TABLET PO SCH (08:11)
[2021-04-25] MEDS: busPIRone 10 MG TABLET PO SCH ×2 (08:12→16:49)
[2021-04-25] MEDS: ENSURE ENLIVE (VAN) 240 ML LIQUID PO SCH ×3 (08:12→16:49)
[2021-04-25 16:11] VITALS: BP 118/61
[2021-04-25] MEDS: MONTELUKAST SODIUM 10 MG TABLET PO SCH (17:09)
[2021-04-25 20:16] VITALS: BP 104/54
[2021-04-25] MEDS: AMLODIPINE 5 MG TABLET PO SCH (20:35)
[2021-04-25] MEDS: TAMSULOSIN HCL 0.4 MG CAP.SR.24H PO SCH (20:35)
[2021-04-25] MEDS: ATORVASTATIN 40 MG TABLET PO SCH (20:35)
[2021-04-25] MEDS: FLUVOXAMINE MALEATE 50 MG TABLET PO SCH (20:37)
[2021-04-26 04:25] VITALS: BP 125/62
[2021-04-26] MEDS: PANTOPRAZOLE SODIUM 40 MG TABLET.DR PO SCH (06:04)
[2021-04-26] MEDS: LEVOTHYROXINE SODIUM 25 MCG TABLET PO SCH (06:04)
[2021-04-26 07:44] VITALS: BP 124/68
[2021-04-26] MEDS: MIRALAX 17 GM POWD.PACK PO SCH (08:01)
[2021-04-26] MEDS: buPROPion 75 MG TABLET PO SCH ×2 (08:01→20:30)
[2021-04-26] MEDS: DOCUSATE SODIUM 100 MG/10 ML LIQUID UDC PO SCH ×2 (08:01→16:08)
[2021-04-26] MEDS: MULTIVITAMINS,THERAPEUTIC TABLET PO SCH (08:02)
[2021-04-26] MEDS: ENSURE ENLIVE (VAN) 240 ML LIQUID PO SCH ×3 (08:02→16:09)
[2021-04-26] MEDS: FINASTERIDE 5 MG TABLET PO SCH (08:02)
[2021-04-26] MEDS: busPIRone 10 MG TABLET PO SCH ×2 (08:02→16:09)
[2021-04-26] MEDS: CLONAZEPAM 0.5 MG TABLET PO SCH ×3 (08:02→20:30)
[2021-04-26] MEDS: FLUDROCORTISONE ACETATE 0.1 MG TABLET PO SCH (08:02)
[2021-04-26] MEDS: CARBIDOPA/LEVODOPA 25-100MG TABLET PO SCH ×3 (08:02→16:09)
[2021-04-26 16:03] VITALS: BP 116/64
[2021-04-26] MEDS: MONTELUKAST SODIUM 10 MG TABLET PO SCH (17:07)
[2021-04-26 20:09] VITALS: BP 134/69
[2021-04-26] MEDS: TAMSULOSIN HCL 0.4 MG CAP.SR.24H PO SCH (20:29)
[2021-04-26] MEDS: ATORVASTATIN 40 MG TABLET PO SCH (20:30)
[2021-04-26] MEDS: FLUVOXAMINE MALEATE 50 MG TABLET PO SCH (20:30)
[2021-04-26] MEDS: AMLODIPINE 5 MG TABLET PO SCH (20:31)
[2021-04-27 04:09] VITALS: BP 127/62
[2021-04-27] MEDS: PANTOPRAZOLE SODIUM 40 MG TABLET.DR PO SCH (06:05)
[2021-04-27] MEDS: LEVOTHYROXINE SODIUM 25 MCG TABLET PO SCH (06:05)
[2021-04-27 07:53] VITALS: BP 122/68
[2021-04-27] MEDS: CARBIDOPA/LEVODOPA 25-100MG TABLET PO SCH ×3 (08:06→16:27)
[2021-04-27] MEDS: MULTIVITAMINS,THERAPEUTIC TABLET PO SCH (08:06)
[2021-04-27] MEDS: busPIRone 10 MG TABLET PO SCH ×2 (08:06→16:27)
[2021-04-27] MEDS: DOCUSATE SODIUM 100 MG/10 ML LIQUID UDC PO SCH ×2 (08:07→16:27)
[2021-04-27] MEDS: CLONAZEPAM 0.5 MG TABLET PO SCH ×3 (08:07→20:12)
[2021-04-27] MEDS: MIRALAX 17 GM POWD.PACK PO SCH (08:07)
[2021-04-27] MEDS: ENSURE ENLIVE (VAN) 240 ML LIQUID PO SCH ×3 (08:07→16:27)
[2021-04-27] MEDS: FLUDROCORTISONE ACETATE 0.1 MG TABLET PO SCH (08:07)
[2021-04-27] MEDS: FINASTERIDE 5 MG TABLET PO SCH (08:07)
[2021-04-27] MEDS: buPROPion 75 MG TABLET PO SCH ×2 (08:09→20:13)
[2021-04-27 16:14] VITALS: BP 122/66
[2021-04-27] MEDS: MONTELUKAST SODIUM 10 MG TABLET PO SCH (17:15)
[2021-04-27 20:00] VITALS: BP 128/60
[2021-04-27] MEDS: TAMSULOSIN HCL 0.4 MG CAP.SR.24H PO SCH (20:12)
[2021-04-27] MEDS: ATORVASTATIN 40 MG TABLET PO SCH (20:12)
[2021-04-27] MEDS: AMLODIPINE 5 MG TABLET PO SCH (20:13)
[2021-04-27] MEDS: FLUVOXAMINE MALEATE 50 MG TABLET PO SCH (20:13)
[2021-04-28 04:00] VITALS: BP 139/67
[2021-04-28] MEDS: PANTOPRAZOLE SODIUM 40 MG TABLET.DR PO SCH (06:05)
[2021-04-28] MEDS: LEVOTHYROXINE SODIUM 25 MCG TABLET PO SCH (06:05)
[2021-04-28 07:43] VITALS: BP 145/72
[2021-04-28] MEDS: CLONAZEPAM 0.5 MG TABLET PO SCH ×3 (08:07→20:41)
[2021-04-28] MEDS: DOCUSATE SODIUM 100 MG/10 ML LIQUID UDC PO SCH ×2 (08:07→16:15)
[2021-04-28] MEDS: CARBIDOPA/LEVODOPA 25-100MG TABLET PO SCH ×3 (08:07→16:15)
[2021-04-28] MEDS: busPIRone 10 MG TABLET PO SCH ×2 (08:07→16:15)
[2021-04-28] MEDS: MIRALAX 17 GM POWD.PACK PO SCH (08:08)
[2021-04-28] MEDS: buPROPion 75 MG TABLET PO SCH ×2 (08:08→20:42)
[2021-04-28] MEDS: FLUDROCORTISONE ACETATE 0.1 MG TABLET PO SCH (08:08)
[2021-04-28] MEDS: MULTIVITAMINS,THERAPEUTIC TABLET PO SCH (08:08)
[2021-04-28] MEDS: ENSURE ENLIVE (VAN) 240 ML LIQUID PO SCH ×3 (08:08→16:15)
[2021-04-28] MEDS: FINASTERIDE 5 MG TABLET PO SCH (08:08)
[2021-04-28 12:00] VITALS: BP 113/63
[2021-04-28 16:00] VITALS: BP 133/68
[2021-04-28] MEDS: MONTELUKAST SODIUM 10 MG TABLET PO SCH (17:16)
[2021-04-28 20:00] VITALS: BP 107/61
[2021-04-28] MEDS: TAMSULOSIN HCL 0.4 MG CAP.SR.24H PO SCH (20:41)
[2021-04-28] MEDS: ATORVASTATIN 40 MG TABLET PO SCH (20:42)
[2021-04-28] MEDS: FLUVOXAMINE MALEATE 50 MG TABLET PO SCH (20:42)
[2021-04-28] MEDS: AMLODIPINE 5 MG TABLET PO SCH (20:45)
[2021-04-29 04:00] VITALS: BP 102/58
[2021-04-29] MEDS: LEVOTHYROXINE SODIUM 25 MCG TABLET PO SCH (06:02)
[2021-04-29] MEDS: PANTOPRAZOLE SODIUM 40 MG TABLET.DR PO SCH (06:02)
--- NOTE | 2021-04-29 06:12 | NUR ---
Patient resting in bed comfortably.On ra .No s/s of distress noted.Compliant with medication and tx.Incontinent ,Pericare rendered.Changed and repositioned patient.Continue safety measures. VSs.All needs anticipated and met accordingly. Will endorse to oncoming shift.
--- NOTE | 2021-04-29 07:40 | NUR ---
Received patient report from PM nurse. Arrived to patient resting comfortably in bed watching TV and awaiting breakfast. Patient showing no signs of distress or discomfort. Patient denies pain. IV site on patients RFA Heplock. Bed left in lowest position with call light within reach. Will continue to monitor patient throughout shift.
[2021-04-29 07:41] VITALS: BP 134/74
[2021-04-29] MEDS: MULTIVITAMINS,THERAPEUTIC TABLET PO SCH (08:11)
[2021-04-29] MEDS: DOCUSATE SODIUM 100 MG/10 ML LIQUID UDC PO SCH ×2 (08:11→17:00)
[2021-04-29] MEDS: busPIRone 10 MG TABLET PO SCH ×2 (08:11→17:03)
[2021-04-29] MEDS: FLUDROCORTISONE ACETATE 0.1 MG TABLET PO SCH (08:12)
[2021-04-29] MEDS: CARBIDOPA/LEVODOPA 25-100MG TABLET PO SCH ×3 (08:12→17:01)
[2021-04-29] MEDS: CLONAZEPAM 0.5 MG TABLET PO SCH ×3 (08:13→20:44)
[2021-04-29] MEDS: FINASTERIDE 5 MG TABLET PO SCH (08:13)
[2021-04-29] MEDS: MIRALAX 17 GM POWD.PACK PO SCH (08:13)
[2021-04-29] MEDS: buPROPion 75 MG TABLET PO SCH ×2 (08:14→20:42)
[2021-04-29] MEDS: ENSURE ENLIVE (VAN) 240 ML LIQUID PO SCH ×3 (08:21→17:03)
--- NOTE | 2021-04-29 08:56 | NUR ---
INTERDISCIPLINARY TEAM CONFERENCE
[2021-04-29 11:24] VITALS: BP 99/55
[2021-04-29 16:12] VITALS: BP 107/65
[2021-04-29] MEDS: MONTELUKAST SODIUM 10 MG TABLET PO SCH (17:00)
--- NOTE | 2021-04-29 20:00 | NUR ---
NSG: Received patient lying on bed, alert and oriented awake. patient is forgetful. no shortness of breath noted, able to understand simple directions, able to make his needs known. assisted with adl's. Call light placed within reach.
[2021-04-29 20:07] VITALS: BP 144/58
[2021-04-29] MEDS: ATORVASTATIN 40 MG TABLET PO SCH (20:42)
[2021-04-29] MEDS: TAMSULOSIN HCL 0.4 MG CAP.SR.24H PO SCH (20:42)
[2021-04-29] MEDS: FLUVOXAMINE MALEATE 50 MG TABLET PO SCH (20:42)
[2021-04-29] MEDS: AMLODIPINE 5 MG TABLET PO SCH (20:53)
[2021-04-29 20:55] VITALS: BP 134/64
[2021-04-30 04:24] VITALS: BP 121/67
--- NOTE | 2021-04-30 04:43 | NUR ---
NSG: Patient slept well through out the night. In no acute distress. Needs attended to and met. no c/o pain or discomfort at this time. Safety measure maintained and call light within reach.
[2021-04-30] MEDS: PANTOPRAZOLE SODIUM 40 MG TABLET.DR PO SCH (06:05)
[2021-04-30] MEDS: LEVOTHYROXINE SODIUM 25 MCG TABLET PO SCH (06:05)
[2021-04-30 07:39] VITALS: BP 143/75
[2021-04-30] MEDS: busPIRone 10 MG TABLET PO SCH ×2 (09:14→17:36)
[2021-04-30] MEDS: FINASTERIDE 5 MG TABLET PO SCH (09:14)
[2021-04-30] MEDS: FLUDROCORTISONE ACETATE 0.1 MG TABLET PO SCH (09:15)
[2021-04-30] MEDS: MULTIVITAMINS,THERAPEUTIC TABLET PO SCH (09:15)
[2021-04-30] MEDS: CLONAZEPAM 0.5 MG TABLET PO SCH ×3 (09:15→20:22)
[2021-04-30] MEDS: CARBIDOPA/LEVODOPA 25-100MG TABLET PO SCH ×3 (09:15→17:36)
[2021-04-30] MEDS: MIRALAX 17 GM POWD.PACK PO SCH (09:15)
[2021-04-30] MEDS: DOCUSATE SODIUM 100 MG/10 ML LIQUID UDC PO SCH ×2 (09:16→17:36)
[2021-04-30] MEDS: buPROPion 75 MG TABLET PO SCH ×2 (09:16→20:23)
[2021-04-30] MEDS: ENSURE ENLIVE (VAN) 240 ML LIQUID PO SCH ×3 (09:16→17:37)
[2021-04-30 12:03] VITALS: BP 118/65
[2021-04-30 16:19] VITALS: BP 119/62
[2021-04-30] MEDS: MONTELUKAST SODIUM 10 MG TABLET PO SCH (17:36)
[2021-04-30 20:00] VITALS: BP 133/67
[2021-04-30] MEDS: FLUVOXAMINE MALEATE 50 MG TABLET PO SCH (20:23)
[2021-04-30] MEDS: TAMSULOSIN HCL 0.4 MG CAP.SR.24H PO SCH (20:23)
[2021-04-30] MEDS: ATORVASTATIN 40 MG TABLET PO SCH (20:23)
[2021-04-30] MEDS: AMLODIPINE 5 MG TABLET PO SCH (20:23)
--- NOTE | 2021-04-30 20:30 | NUR ---
NSG: Received patient lying on bed, alert and oriented. patient is forgetful. no shortness of breath noted, able to understand simple directions, able to make his needs known. assisted with adl's. Call light placed within reach.
--- NOTE | 2021-04-30 20:45 | NUR ---
nsg: patient c/o constipation. mom 30 ml po given for constipation.
[2021-05-01 04:00] VITALS: BP 101/56
--- NOTE | 2021-05-01 05:22 | NUR ---
NSG: Patient slept well through out the night. In no acute distress. assisted with adl's. good gayla care provided for skin safety. no c/o pain or discomfort at this time. Safety measure maintained and call light within reach.
[2021-05-01] MEDS: PANTOPRAZOLE SODIUM 40 MG TABLET.DR PO SCH (06:16)
[2021-05-01] MEDS: LEVOTHYROXINE SODIUM 25 MCG TABLET PO SCH (06:16)
[2021-05-01 07:18] LABS: HEMATOCRIT 35.3 % (36.7-47.1); MEAN CORPUSCULAR HEMOGLOBIN 29.7 uug (23.8-33.4); MEAN CORPUSCULAR VOLUME 86.9 fL (73.0-96.2); PLATELET COUNT (AUTO) 377 K/uL (152-348)
[2021-05-01 07:22] VITALS: BP 125/66
[2021-05-01 07:44] LABS: BILIRUBIN,TOTAL 0.3 mg/dL (0.2-1.0); CREATININE 1.1 mg/dL (0.6-1.3); MAGNESIUM 2.4 mg/dL (1.8-2.4); POTASSIUM 3.8 mmol/L (3.5-5.1); TOTAL PROTEIN, SERUM 6.8 g/dL (6.4-8.2)
[2021-05-01] MEDS: MIRALAX 17 GM POWD.PACK PO SCH (10:02)
[2021-05-01] MEDS: buPROPion 75 MG TABLET PO SCH ×2 (10:02→20:36)
[2021-05-01] MEDS: CARBIDOPA/LEVODOPA 25-100MG TABLET PO SCH ×3 (10:03→17:08)
[2021-05-01] MEDS: MULTIVITAMINS,THERAPEUTIC TABLET PO SCH (10:03)
[2021-05-01] MEDS: FINASTERIDE 5 MG TABLET PO SCH (10:03)
[2021-05-01] MEDS: FLUDROCORTISONE ACETATE 0.1 MG TABLET PO SCH (10:03)
[2021-05-01] MEDS: busPIRone 10 MG TABLET PO SCH ×2 (10:03→17:09)
[2021-05-01] MEDS: DOCUSATE SODIUM 100 MG/10 ML LIQUID UDC PO SCH ×2 (10:03→17:09)
[2021-05-01] MEDS: ENSURE ENLIVE (VAN) 240 ML LIQUID PO SCH ×3 (10:04→17:09)
[2021-05-01] MEDS: CLONAZEPAM 0.5 MG TABLET PO SCH ×3 (10:04→20:36)
[2021-05-01 15:18] VITALS: BP 118/63
[2021-05-01] MEDS: MONTELUKAST SODIUM 10 MG TABLET PO SCH (17:12)
[2021-05-01 20:06] VITALS: BP 125/57
[2021-05-01] MEDS: AMLODIPINE 5 MG TABLET PO SCH (20:36)
[2021-05-01] MEDS: TAMSULOSIN HCL 0.4 MG CAP.SR.24H PO SCH (20:36)
[2021-05-01] MEDS: ATORVASTATIN 40 MG TABLET PO SCH (20:36)
[2021-05-01] MEDS: FLUVOXAMINE MALEATE 50 MG TABLET PO SCH (20:37)
[2021-05-02 04:09] VITALS: BP 101/88
[2021-05-02] MEDS: PANTOPRAZOLE SODIUM 40 MG TABLET.DR PO SCH (06:19)
[2021-05-02] MEDS: LEVOTHYROXINE SODIUM 25 MCG TABLET PO SCH (06:19)
[2021-05-02 07:24] VITALS: BP 127/68
[2021-05-02] MEDS: DOCUSATE SODIUM 100 MG/10 ML LIQUID UDC PO SCH ×2 (08:47→16:19)
[2021-05-02] MEDS: FLUDROCORTISONE ACETATE 0.1 MG TABLET PO SCH (08:48)
[2021-05-02] MEDS: FINASTERIDE 5 MG TABLET PO SCH (08:48)
[2021-05-02] MEDS: busPIRone 10 MG TABLET PO SCH ×2 (08:48→16:20)
[2021-05-02] MEDS: MULTIVITAMINS,THERAPEUTIC TABLET PO SCH (08:48)
[2021-05-02] MEDS: CLONAZEPAM 0.5 MG TABLET PO SCH ×3 (08:48→20:39)
[2021-05-02] MEDS: ENSURE ENLIVE (VAN) 240 ML LIQUID PO SCH ×3 (08:49→16:21)
[2021-05-02] MEDS: CARBIDOPA/LEVODOPA 25-100MG TABLET PO SCH ×3 (08:49→16:20)
[2021-05-02] MEDS: buPROPion 75 MG TABLET PO SCH ×2 (09:11→20:40)
[2021-05-02] MEDS: MIRALAX 17 GM POWD.PACK PO SCH (09:11)
[2021-05-02 11:11] VITALS: BP 140/92
[2021-05-02 15:13] VITALS: BP 119/58
[2021-05-02] MEDS: MONTELUKAST SODIUM 10 MG TABLET PO SCH (17:09)
--- NOTE | 2021-05-02 17:51 | NUR ---
no events during shift
--- NOTE | 2021-05-02 19:00 | NUR ---
Received patient on bed, alert, no shortness of breath noted. No complaint of pain and discomfort.
[2021-05-02 20:30] VITALS: BP 118/59
[2021-05-02] MEDS: ATORVASTATIN 40 MG TABLET PO SCH (20:38)
[2021-05-02] MEDS: TAMSULOSIN HCL 0.4 MG CAP.SR.24H PO SCH (20:38)
[2021-05-02] MEDS: AMLODIPINE 5 MG TABLET PO SCH (20:39)
[2021-05-02] MEDS: FLUVOXAMINE MALEATE 50 MG TABLET PO SCH (20:45)
[2021-05-03 04:53] VITALS: BP 123/65
[2021-05-03] MEDS: LEVOTHYROXINE SODIUM 25 MCG TABLET PO SCH (06:11)
[2021-05-03] MEDS: PANTOPRAZOLE SODIUM 40 MG TABLET.DR PO SCH (06:11)
--- NOTE | 2021-05-03 06:53 | NUR ---
Patient slept well, repositioned for comfort, no complaint of pain or discomfort, still incontinent and using diaper for voiding. Patient in fair condition.
[2021-05-03 08:00] VITALS: BP 127/67
[2021-05-03] MEDS: CARBIDOPA/LEVODOPA 25-100MG TABLET PO SCH ×2 (09:05→12:34)
[2021-05-03] MEDS: FLUDROCORTISONE ACETATE 0.1 MG TABLET PO SCH (09:05)
[2021-05-03] MEDS: CLONAZEPAM 0.5 MG TABLET PO SCH (09:05)
[2021-05-03] MEDS: FINASTERIDE 5 MG TABLET PO SCH (09:05)
[2021-05-03] MEDS: MIRALAX 17 GM POWD.PACK PO SCH (09:06)
[2021-05-03] MEDS: MULTIVITAMINS,THERAPEUTIC TABLET PO SCH (09:06)
[2021-05-03] MEDS: busPIRone 10 MG TABLET PO SCH (09:06)
[2021-05-03] MEDS: DOCUSATE SODIUM 100 MG/10 ML LIQUID UDC PO SCH (09:07)
[2021-05-03] MEDS: ENSURE ENLIVE (VAN) 240 ML LIQUID PO SCH ×2 (09:08→12:30)
[2021-05-03] MEDS: buPROPion 75 MG TABLET PO SCH (09:08)
--- NOTE | 2021-05-03 14:17 | NUR ---
Ambulance here to take patient to [facility]. All belongings taken with patient. Patient verbalize understanding of discharge instructions. Discharge packet and prescriptions brought with patient. Prescription and medication list faxed to assisted living.
== END 2021-05-03 14:17 | disposition home health service (06) | DRG 56 ==
PROVIDERS: ADMIT Physical Medicine & Rehabilitation Pain Medicine; ATTEND Physical Medicine & Rehabilitation Pain Medicine
DX: G20 Parkinson's disease (principal); N17.0 Acute kidney failure with tubular necrosis; E43 Unspecified severe protein-calorie malnutrition; E87.1 Hypo-osmolality and hyponatremia; N13.30 Unspecified hydronephrosis; D68.59 Other primary thrombophilia; R64 Cachexia; R53.1 Weakness; E86.1 Hypovolemia; F39 Unspecified mood [affective] disorder; N18.9 Chronic kidney disease, unspecified; N40.0 Benign prostatic hyperplasia without lower urinary tract symptoms; R29.6 Repeated falls; Z86.718 Personal history of other venous thrombosis and embolism; Z79.01 Long term (current) use of anticoagulants; D50.9 Iron deficiency anemia, unspecified; I95.1 Orthostatic hypotension; G93.9 Disorder of brain, unspecified; E89.0 Postprocedural hypothyroidism; E05.90 Thyrotoxicosis, unspecified without thyrotoxic crisis or storm; Z91.81 History of falling; F32.A Depression, unspecified; F41.9 Anxiety disorder, unspecified; F90.9 Attention-deficit hyperactivity disorder, unspecified type; K21.9 Gastro-esophageal reflux disease without esophagitis; R13.10 Dysphagia, unspecified; R31.29 Other microscopic hematuria; R62.7 Adult failure to thrive; I12.9 Hypertensive chronic kidney disease with stage 1 through stage 4 chronic kidney disease, or unspecified chronic kidney disease; S79.911D Unspecified injury of right hip, subsequent encounter; W19.XXXD Unspecified fall, subsequent encounter; R26.9 Unspecified abnormalities of gait and mobility
CPT/HCPCS: 36415; 83735; 84100; 84153; 85025; 97161; 97535-GO-CO; A4663; A6209

== ENCOUNTER 2021-06-08 15:23 | Emergency (ER) | payer MEDICARE ==
[~2021-06-08] VITALS: Ht 180.3 cm; Wt 68.0 kg
[~2021-06-08 15:23] MED LIST changes: -APIX5TAB4 PO; -CALC625T65 PO; -CARB-35 PO; +CARB1TAB21 PO; +CLON1TAB12 PO; +FLUV50TA10 PO; -FLUV50TA3 PO; -LEVO137T2 PO; -LOSA100T31 PO; +MONT10TA22 PO; -MONT10TA33 PO; -MULT-1169 PO; +MULT-594 PO; +PANT40TA2 PO; -PANT40TA49 PO; -VOLTAREN GEL TP
--- NOTE | 2021-06-08 15:25 | NUR ---
Dr Felipe at the bedside for MSE.
--- NOTE | 2021-06-08 15:45 | NUR ---
Pt out of ER for CT scan.
[2021-06-08 15:54] LABS: HEMATOCRIT 34.9 % (36.7-47.1); MEAN CORPUSCULAR HEMOGLOBIN 29.6 uug (23.8-33.4); MEAN CORPUSCULAR VOLUME 87.6 fL (73.0-96.2); PLATELET COUNT (AUTO) 191 K/uL (152-348)
--- NOTE | 2021-06-08 15:59 | NUR ---
PT back from Ct scan, resting in bed.
[2021-06-08 16:01] LABS: ETHANOL < 3 MG/DL (0-0)
[2021-06-08 16:06] LABS: ACETAMINOPHEN < 2.0 ug/mL (10-30); ALANINE AMINOTRANSFERASE 10 U/L (16-63); ALKALINE PHOSPHATASE 93 U/L (50-136); ASPARTATE AMINOTRANSFERASE 7 U/L (15-37); BILIRUBIN,DIRECT 0.1 mg/dL (0.0-0.2); BILIRUBIN,TOTAL 0.3 mg/dL (0.2-1.0); CARBON DIOXIDE 33 mmol/L (21-32); CHLORIDE 103 mmol/L (98-107); GLUCOSE 120 mg/dL (74-106); POTASSIUM 3.5 mmol/L (3.5-5.1); TOTAL PROTEIN, SERUM 6.5 g/dL (6.4-8.2); UREA NITROGEN, BLOOD 21 mg/dL (7-18)
[2021-06-08 16:32] LABS: THYROID STIMULATING HORMONE 84.117 mIU/mL (0.358-3.740)
[2021-06-08] MEDS ORDERED: CALC625T65 PO (16:32)
[2021-06-08] MEDS ORDERED: NA P133E4 RC (16:32)
[2021-06-08] MEDS ORDERED: APIX5TAB PO (16:32)
[2021-06-08] MEDS ORDERED: DESM0.2T23 PO (16:32)
[2021-06-08] MEDS ORDERED: BISA10SU61 RC (16:32)
[2021-06-08] MEDS ORDERED: IPRA12.9 INH (16:32)
[2021-06-08] MEDS ORDERED: LOSA100T31 PO (16:32)
[2021-06-08] MEDS ORDERED: NORT10CA PO (16:32)
[2021-06-08] MEDS ORDERED: AZEL205. BNOSTRILS (16:32)
[2021-06-08 17:08] LABS: *BILIRUBIN,URIN NEGATIVE (NEGATIVE); *BLOOD, URINE NEGATIVE (NEGATIVE); *CLARITY,URINE CLEAR (CLEAR); *COLOR,URINE YELLOW (YELLOW); *KETONES,URINE NEGATIVE (NEGATIVE); *UROBILINOGEN,URINE 0.2 E.U./dl (NORMAL); LEUKOCYTE ESTERASE ,URINE NEGATIVE (NEGATIVE); NITRITE, URINE NEGATIVE (NEGATIVE); PH,URINE 5.5 (5.0-8.0); UGLUCOSE NEGATIVE (NEGATIVE)
[2021-06-08 17:17] LABS: *AMPHETAMINE, URINE NEGATIVE (NEGATIVE); *CANNABINOID, URINE NEGATIVE (NEGATIVE); *COCCAINE, URINE NEGATIVE (NEGATIVE); *OPIATE, URINE NEGATIVE (NEGATIVE); *PHENCYCLIDINE SCREEN,URINE NEGATIVE (NEGATIVE)
--- NOTE | 2021-06-08 17:53 | NUR ---
Dinner tray provided, ate w/ good appettite. Denies dizziness and pain.
[2021-06-08] MEDS ORDERED: IV NORMAL SALINE 1000 ML BAG IV ONE (18:30)
--- NOTE | 2021-06-08 19:08 | NUR ---
RECEIVED REPORT FROM MAG MÉNDEZ. PT NOTED TO BE IN BED RESTING COMFORTABLY. DENIES ANY PAIN/DISCOMFORT AT THIS TIME. A/O X4. NO SOB OR LABORED BREATHING.
--- NOTE | 2021-06-08 19:44 | NUR ---
ASSISTED PT TO USE URINAL.
--- NOTE | 2021-06-08 20:27 | NUR ---
CALLED [facility] FOR PT TRANSPORTATION, SPOKE WITH MAK GIVEN ETA OF 75-90 MINS.
--- NOTE | 2021-06-08 20:30 | NUR ---
SPOKE WITH SHIRA FROM [facility] MADE AWARE THAT PT IS BEING DISCHARGED BACK TO FACILITY.
--- NOTE | 2021-06-08 22:13 | NUR ---
CALLED [facility] FOR UPDATE, NEW ETA OF 15-20 MINS.
--- NOTE | 2021-06-08 22:30 | NUR ---
[facility] [address] AT BEDSIDE.
[2021-06-08 22:32] VITALS: BP 154/92
--- NOTE | 2021-06-08 22:33 | NUR ---
Patient discharged to [facility] in stable condition. Written and verbal after care instructions given. Patient verbalizes understanding of instructions. Stressed follow up or return to ER for worsening s/s. No changes in LOC. Denies any pain/discomfort upon discharge.
== END 2021-06-08 22:40 ==
LOC: ER 15:23
DX: R55 Syncope and collapse (principal); E86.0 Dehydration; G20 Parkinson's disease; E78.5 Hyperlipidemia, unspecified; Z86.718 Personal history of other venous thrombosis and embolism; Z79.01 Long term (current) use of anticoagulants; Z79.899 Other long term (current) drug therapy; K21.9 Gastro-esophageal reflux disease without esophagitis; F90.9 Attention-deficit hyperactivity disorder, unspecified type; F41.9 Anxiety disorder, unspecified; Z20.822 Contact with and (suspected) exposure to COVID-19
CPT/HCPCS: 36415; 70450; 71045; 80048; 80076; 80299; 80307; 80320; 81003; 82140; 83605; 84443; 84484; 85025; 85730; 87040 ×2; 87086; 87426; 93005; 96360; 99291; J7040; A4663; C1758; G0480

== ENCOUNTER 2022-10-29 19:42 | Emergency (ER) | payer MEDICARE ==
[~2022-10-29] VITALS: Ht 180.3 cm; Wt 68.0 kg
[~2022-10-29 19:42] MED LIST changes: +APIX5TAB PO; +AZEL205. BNOSTRILS; +CALC625T65 PO; -CLON1TAB12 PO; +DESM0.2T23 PO; +IPRA12.9 INH; +LOSA100T31 PO; -NA P133E RC; +NA P133E4 RC; +NORT10CA PO
[2022-10-29] MEDS ORDERED: BUPR100T5 PO (20:05)
[2022-10-29] MEDS ORDERED: ALBU2.5V38 NEB (20:05)
[2022-10-29 20:19] LABS: BASOPHILS % (AUTO) 0.6 % (0.0-2.0); DIFFERENTIAL COMMENT 0; EOSINOPHILS # (AUTO) 0.2 K/uL (0.0-0.7); EOSINOPHILS % (AUTO) 2.9 % (0.0-7.0); HEMATOCRIT 35.7 % (36.7-47.1); LYMPHOCYTES % (AUTO) 13.1 % (20.5-51.5); MEAN CORPUSCULAR HEMOGLOBIN 28.8 uug (23.8-33.4); MEAN CORPUSCULAR HGB CONC 34 g/dL (32.5-36.3); MEAN CORPUSCULAR VOLUME 85.7 fL (73.0-96.2); MONOCYTES # (AUTO) 0.8 K/uL (0.1-1.30); MONOCYTES % (AUTO) 10.5 % (0.0-11.0); NEUTROPHILS # (AUTO) 5.3 K/uL (1.8-8.9); NEUTROPHILS % (AUTO) 72.9 % (38.5-71.5); PLATELET COUNT (AUTO) 225 K/uL (152-348); RED BLOOD CELL COUNT(AUTO) 4.17 MIL/uL (4.06-5.63); WHITE BLOOD COUNT (AUTO) 7.3 K/uL (3.6-10.2)
[2022-10-29 20:37] LABS: ALANINE AMINOTRANSFERASE 8 U/L (16-63); ALBUMIN 3.2 g/dL (3.4-5.0); ALKALINE PHOSPHATASE 97 U/L (50-136); ASPARTATE AMINOTRANSFERASE 15 U/L (15-37); BILIRUBIN,DIRECT 0.1 mg/dL (0.0-0.2); BILIRUBIN,TOTAL 0.3 mg/dL (0.2-1.0); CARBON DIOXIDE 31 mmol/L (21-32); CHLORIDE 101 mmol/L (98-107); CREATININE 1.1 mg/dL (0.6-1.3); GLUCOSE 111 mg/dL (74-106); POTASSIUM 3.5 mmol/L (3.5-5.1); SODIUM SERUM 139 mmol/L (136-145); TOTAL PROTEIN, SERUM 6.6 g/dL (6.4-8.2); UREA NITROGEN, BLOOD 19 mg/dL (7-18)
[2022-10-29 22:41] LABS: *BILIRUBIN,URIN NEGATIVE (NEGATIVE); *BLOOD, URINE 2+ (NEGATIVE); *CLARITY,URINE CLEAR (CLEAR); *COLOR,URINE YELLOW (YELLOW); *KETONES,URINE TRACE (NEGATIVE); *PROTEIN,URINE TRACE (NEGATIVE); LEUKOCYTE ESTERASE ,URINE NEGATIVE (NEGATIVE); NITRITE, URINE NEGATIVE (NEGATIVE); UGLUCOSE NEGATIVE (NEGATIVE)
[2022-10-29 23:18] LABS: BACTERIA,URINE FEW /HPF (NONE SEEN); SQUAMOUS EPITHELIAL CELL,UR FEW /HPF (NONE SEEN); WBC,URINE 0-3 /HPF (0-3)
[2022-10-29 23:19] LABS: CALCIUM OXALATE CRYSTALS,UR FEW /HPF (NONE SEEN); RBC,URINE 20-50 /HPF (0-3)
[2022-10-30 02:42] VITALS: BP 148/63; O2SAT 96
== END 2022-10-30 02:43 | disposition home or self-care (01) ==
LOC: ER 19:45
DX: R25.1 Tremor, unspecified (principal); R51.9 Headache, unspecified; J45.909 Unspecified asthma, uncomplicated; K21.9 Gastro-esophageal reflux disease without esophagitis; Z79.899 Other long term (current) drug therapy; W18.39XA Other fall on same level, initial encounter; Y93.89 Activity, other specified; Y92.89 Other specified places as the place of occurrence of the external cause; Y99.8 Other external cause status
CPT/HCPCS: 36415; 70450; 71045; 83605; 84484; 85025; 85730; 87040; 93005; A4663; C1758

== ENCOUNTER 2022-11-03 13:49 | Emergency (ER) | payer MEDICARE ==
[~2022-11-03] VITALS: Ht 180.3 cm; Wt 68.0 kg
[~2022-11-03 13:49] MED LIST changes: +ALBU2.5V38 NEB; +BUPR100T5 PO
[2022-11-03] MEDS ORDERED: VITAMIN D3 PO (14:29)
[2022-11-03] MEDS ORDERED: BUDE10.2 INH (14:29)
[2022-11-03] MEDS ORDERED: VITAMIN D3 (14:29)
[2022-11-03] MEDS ORDERED: ROPI1TAB6 PO (14:29)
[2022-11-03] MEDS ORDERED: CARBIDOPA LEVO PO (14:40)
[2022-11-03] MEDS ORDERED: CEFU500T66 PO (14:40)
[2022-11-03] MEDS ORDERED: LEVO150T8 PO (14:40)
[2022-11-03] MEDS ORDERED: CLON0.5T4 PO (14:40)
[2022-11-03] MEDS ORDERED: SENN8.6T19 PO (14:49)
[2022-11-03 15:07] LABS: BASOPHILS % (AUTO) 0.5 % (0.0-2.0); DIFFERENTIAL COMMENT 0; EOSINOPHILS # (AUTO) 0.3 K/uL (0.0-0.7); EOSINOPHILS % (AUTO) 3.2 % (0.0-7.0); HEMATOCRIT 35.7 % (36.7-47.1); HEMOGLOBIN 11.7 g/dL (12.5-16.3); LYMPHOCYTES # (AUTO) 1.1 K/uL (0.8-4.8); LYMPHOCYTES % (AUTO) 12.9 % (20.5-51.5); MEAN CORPUSCULAR HEMOGLOBIN 28.5 uug (23.8-33.4); MEAN CORPUSCULAR HGB CONC 33 g/dL (32.5-36.3); MEAN CORPUSCULAR VOLUME 86.7 fL (73.0-96.2); MONOCYTES # (AUTO) 0.7 K/uL (0.1-1.30); NEUTROPHILS # (AUTO) 6.3 K/uL (1.8-8.9); NEUTROPHILS % (AUTO) 75.4 % (38.5-71.5); PLATELET COUNT (AUTO) 204 K/uL (152-348); RED BLOOD CELL COUNT(AUTO) 4.12 MIL/uL (4.06-5.63); RED CELL DISTRIBUTION WIDTH 16.4 % (12.1-16.2); WHITE BLOOD COUNT (AUTO) 8.3 K/uL (3.6-10.2)
[2022-11-03 15:25] LABS: ETHANOL < 3 MG/DL (0-10)
[2022-11-03 15:37] LABS: ALANINE AMINOTRANSFERASE 12 U/L (16-63); ALBUMIN 3.2 g/dL (3.4-5.0); ALKALINE PHOSPHATASE 91 U/L (50-136); ASPARTATE AMINOTRANSFERASE 16 U/L (15-37); BILIRUBIN,DIRECT 0.1 mg/dL (0.0-0.2); BILIRUBIN,TOTAL 0.3 mg/dL (0.2-1.0); CALCIUM 9.1 mg/dL (8.5-10.1); CARBON DIOXIDE 34 mmol/L (21-32); CHLORIDE 104 mmol/L (98-107); CREATININE 0.8 mg/dL (0.6-1.3); GLUCOSE 114 mg/dL (74-106); NT-PRO BNP 292 pg/mL (0-125); POTASSIUM 3.4 mmol/L (3.5-5.1); SODIUM SERUM 144 mmol/L (136-145); TOTAL PROTEIN, SERUM 6.8 g/dL (6.4-8.2); UREA NITROGEN, BLOOD 16 mg/dL (7-18)
[2022-11-03 15:58] LABS: ACETAMINOPHEN < 10.0 ug/mL (10-30)
[2022-11-03] MEDS ORDERED: LOSARTAN POTASSIUM 50 MG TABLET PO ONE (18:45)
[2022-11-03 19:15] VITALS: BP 169/88; O2SAT 96
== END 2022-11-03 19:19 ==
LOC: ER 13:49
DX: S61.411A Laceration without foreign body of right hand, initial encounter (principal); S00.01XA Abrasion of scalp, initial encounter; G20 Parkinson's disease; J45.909 Unspecified asthma, uncomplicated; K21.9 Gastro-esophageal reflux disease without esophagitis; E78.5 Hyperlipidemia, unspecified; Z86.2 Personal history of diseases of the blood and blood-forming organs and certain disorders involving the immune mechanism; Z79.899 Other long term (current) drug therapy; W18.2XXA Fall in (into) shower or empty bathtub, initial encounter; Y93.89 Activity, other specified; Y92.89 Other specified places as the place of occurrence of the external cause; Y99.8 Other external cause status
CPT/HCPCS: 36415; 70450; 71045; 72125; 73090; 83605; 84484; 85025; 87040; 93005; A4663; G0480